=== PATIENT | female | born 1995 | race Caucasian/White ===

== ENCOUNTER 2020-09-29 09:50 | Observation (INO) | payer OTHER ==
[~2020-09-29] VITALS: Ht 162.6 cm; Wt 95.3 kg
[2020-09-29] MEDS ORDERED: ONDANSETRON HCL 4MG/2ML INJ IM SCH (10:30)
[2020-09-29] MEDS ORDERED: SODIUM CHLORIDE 0.9% 1,000 ML IV SCH (10:45)
[2020-09-29] MEDS ORDERED: PREN1TAB78 MT (10:48)
[2020-09-29 10:54] LABS: CHLORIDE 110 mEq/L (98-107)
[2020-09-29 11:35] VITALS: BP 114/56
[2020-09-29] MEDS ORDERED: ACETAMINOPHEN WITH CODEINE 300/30MG TABLET PO NR ×2 (11:45→12:00)
[2020-09-29] MEDS ORDERED: [UNRECOGNIZED DRUG - REMARK] IV SCH (12:00)
== END 2020-09-29 12:30 | disposition home or self-care, planned readmission (81) ==
LOC: 8 EST LDRP 09:50
PROVIDERS: ADMIT Obstetrics & Gynecology; ATTEND Obstetrics & Gynecology
DX: O99.613 Diseases of the digestive system complicating pregnancy, third trimester (principal); K80.20 Calculus of gallbladder without cholecystitis without obstruction; Z3A.37 37 weeks gestation of pregnancy
CPT/HCPCS: 36415; 59025; 80053; 96360; 96361; 96372; G0378; J2405; 99281; J3490

== ENCOUNTER 2020-10-10 19:12 | Observation (INO) | payer OTHER ==
[~2020-10-10] VITALS: Ht 162.6 cm; Wt 97.5 kg
[~2020-10-10 19:12] MED LIST: PREN1TAB78 MT
== END 2020-10-10 22:00 | disposition home or self-care (01) ==
LOC: 8 EST LDRP 19:12
PROVIDERS: ADMIT Obstetrics & Gynecology; ATTEND Obstetrics & Gynecology
DX: O36.8130 Decreased fetal movements, third trimester, not applicable or unspecified (principal); Z3A.39 39 weeks gestation of pregnancy
CPT/HCPCS: 59025; 76815; 76818; G0378; 99281